=== PATIENT | female | born 1960 | race Caucasian/White ===

== ENCOUNTER 2024-05-09 08:55 | Observation (INO) | payer BC ==
[~2024-05-09 08:55] MED LIST: Ropivacaine 49.25 ML, Ketorolac 30 MG, EPINEPHrine 0.5 MG, cloNIDine 80 MCG in Sodium C... INJECT SCH; Tranexamic Acid IN NACL,ISO-OS 1,000 MG in Premix Bag 1 BAG IV SCH; ceFAZolin 2 GM in Sodium Chloride 0.9% 50 ML IV SCH
[2024-05-09] MEDS: Lactated Ringers 1,000 ML IV SCH (09:41)
[2024-05-09] MEDS ORDERED: Famotidine 20 MG/2 ML SDV ONE (09:41)
[2024-05-09] MEDS ORDERED: propofoL 50 ML ONE (09:41)
[2024-05-09] MEDS ORDERED: dexmedeTOMIDine HCl 200 MCG/2 ML SDV ONE (09:43)
[2024-05-09] MEDS ORDERED: fentaNYL 100 MCG/2 ML SDV ONE (09:43)
[2024-05-09] MEDS ORDERED: Midazolam 1 MG/ML 2 ML SDV ONE (09:43)
[2024-05-09] MEDS: Famotidine 20 MG/2 ML SDV IVPUSH SCH (09:45)
[2024-05-09] MEDS ORDERED: Ropivacaine 0.5% 5 MG/ML 30 ML SDV ONE (09:55)
[2024-05-09] MEDS ORDERED: HYDROmorphone 1 MG/ML Syringe IVPUSH PRN (10:30)
[2024-05-09] MEDS ORDERED: Metoclopramide 10 MG/2 ML SDV IVPUSH PRN (10:30)
[2024-05-09] MEDS ORDERED: Naloxone 0.4 MG/ML SDV IVPUSH PRN (10:30)
[2024-05-09] MEDS ORDERED: Ondansetron 4 MG/2 ML SDV IVPUSH PRN (10:30)
[2024-05-09] MEDS ORDERED: fentaNYL 50 MCG/ML SDV IVPUSH PRN (10:30)
[2024-05-09] MEDS ORDERED: Phenylephrine HCl In 0.9% NaCl 1 MG/10 ML Syringe IVPUSH PRN (10:30)
[2024-05-09] MEDS ORDERED: Albuterol 0.083% 2.5 MG/3 ML Neb Soln NEB PRN (10:30)
[2024-05-09] MEDS ORDERED: Ketamine HCL/NACL, ISO-OSM 50 MG/5 ML Syringe ONE (11:06)
[2024-05-09] MEDS ORDERED: ceFAZolin 2 GM Vial ONE (11:06)
[2024-05-09] MEDS ORDERED: Tranexamic Acid 1,000 MG/10 ML Vial ONE (11:15)
[2024-05-09] MEDS ORDERED: ePHEDrine 50 MG/ML SDV ONE (11:24)
[2024-05-09] MEDS ORDERED: Lidocaine 2% 5 ML SDV ONE (11:40)
[2024-05-09] MEDS ORDERED: Propofol 200 MG/20 ML SDV ONE (12:17)
[2024-05-09] MEDS ORDERED: diphenhydrAMINE 25 MG Cap PO PRN (13:21)
[2024-05-09] MEDS ORDERED: Sodium Chloride 0.9% 10 ML Syringe FLUSH PRN (13:21)
[2024-05-09] MEDS ORDERED: Sodium Chloride 0.9% 2.5 ML Syringe FLUSH PRN (13:21)
[2024-05-09] MEDS: Ketorolac 30 MG/ML SDV IVPUSH SCH (14:38)
[2024-05-09] MEDS: Acetaminophen 325 MG Tab PO SCH (17:24)
[2024-05-09] MEDS: Aspirin 325 MG Tab PO SCH (18:17)
[2024-05-09] MEDS: traMADol 50 MG Tab PO PRN (18:18)
[2024-05-09] MEDS: oxyCODONE 5 MG Tab PO PRN (20:58)
[2024-05-09] MEDS: ceFAZolin 2 GM in Sodium Chloride 0.9% 50 ML IV SCH (20:59)
[2024-05-09] MEDS: Docusate Sodium 100 MG Cap PO SCH (20:59)
[2024-05-10] MEDS: HYDROmorphone 1 MG/ML Syringe IVPUSH PRN (00:56)
[2024-05-10] MEDS: Ondansetron 4 MG/2 ML SDV IVPUSH PRN (01:30)
[2024-05-10 05:53] LABS: HEMATOCRIT 36.3 % (37.0-47.0); HEMOGLOBIN 11.8 g/dL (12.0-16.0)
[2024-05-10] MEDS: Famotidine 20 MG Tab PO SCH (09:10)
[2024-05-10] MEDS: Ibuprofen 800 MG Tab PO SCH (09:10)
[2024-05-10] MEDS: Polyethylene Glycol 3350 Powder 17 GM Packet PO SCH (11:51)
== END 2024-05-10 15:09 | disposition home or self-care (01) ==
LOC: MW.SDS 08:55 → MW.MS 14:29
PROVIDERS: ADMIT Orthopaedic Surgery; ATTEND Orthopaedic Surgery
DX: M17.12 Unilateral primary osteoarthritis, left knee (principal); E66.9 Obesity, unspecified; Z79.899 Other long term (current) drug therapy; Z79.82 Long term (current) use of aspirin; Z91.040 Latex allergy status; Z88.5 Allergy status to narcotic agent; Z68.35 Body mass index [BMI] 35.0-35.9, adult
CPT/HCPCS: 27447; 36415; 64447; 73560; 85014; 85018; 86850; 86900; 86901; 97110; 97161; 97530; A9270; C1776; J0131; J0171; J0690; J0735; J1170; J1885; J2250; J2405; J2704; J2795; J3010; J3490; J7120; 01402